=== PATIENT | male | born 1985 | race Two or more races ===

== ENCOUNTER 2017-08-10 22:53 | Emergency (ER) | payer OTHER ==
[~2017-08-10] VITALS: Ht 172.7 cm; Wt 72.6 kg
[2017-08-10] MEDS ORDERED: CLARITIN10 M1 (23:06)
[2017-08-10] MEDS ORDERED: ADVIL LIQUI-GE200 MG (23:06)
[2017-08-10] MEDS ORDERED: OSEL75CA (23:07)
[2017-08-10] MEDS ORDERED: TESSALON PERLE100 M1 (23:07)
[2017-08-11] MEDS ORDERED: AIRBORNE EFFER1 EACH PO (00:42)
[2017-08-11] MEDS ORDERED: KETO10TA2 PO (00:42)
[2017-08-11] MEDS ORDERED: PHENERGAN25 MG PO (00:42)
[2017-08-11] MEDS ORDERED: ZANTAC300 MG PO (00:42)
== END 2017-08-11 00:56 | disposition home or self-care (01) ==
LOC: ER 22:53
DX: J11.1 Influenza due to unidentified influenza virus with other respiratory manifestations (principal)